=== PATIENT | male | born 1995 | race Asian ===

== ENCOUNTER 2022-09-02 10:01 | Outpatient (CLI) | payer MEDICAID, SELFPAY | END 2022-09-02 10:02 | disposition home or self-care (01) | LOC: NFLDREF 09-03 07:23 | PROVIDERS: PCP Physician Assistant Medical; Referring Provider Physician Assistant Medical; Visit Provider Physician Assistant Medical | DX: Z00.00 Encounter for general adult medical examination without abnormal findings (principal); Z13.6 Encounter for screening for cardiovascular disorders; Z13.1 Encounter for screening for diabetes mellitus | CPT/HCPCS: 80061; 82947 ==